=== PATIENT | male | born 1985 | race Caucasian/White ===

== ENCOUNTER 2023-07-06 13:39 | Emergency (ER) | payer OTHER ==
[2023-07-06 14:03] VITALS: BMI 26.6
[2023-07-06] MEDS ORDERED: KETOROLAC TROMETHAMINE 30 MG/1 ML VIAL IM ONE (14:33)
[2023-07-06] MEDS ORDERED: SODIUM CHLORIDE 0.9% 500 ML INFUS.BAG IV ONE (14:35)
[2023-07-06] MEDS ORDERED: KETOROLAC TROMETHAMINE 15 MG/ML VIAL IVPUSH ONE (14:35)
[2023-07-06] MEDS ORDERED: KETOROLAC TROMETHAMINE 15 MG/ML VIAL ONE (15:09)
[2023-07-06 15:24] LABS: BASO % 0.7 % (0-2.0); EOS % 0.8 % (0-4.5); HEMATOCRIT 42.7 % (35.4-49); HEMOGLOBIN 14.7 GM/dL (11.7-16.9); MCH 31.4 pg (25.7-33.7); MCHC 34.3 g/dl (32.0-35.9); MEAN CELL VOLUME 91.4 fl (80-96); MEAN PLT VOLUME 9.5 fl (7.5-11.1); MONO % 6.7 % (3.8-10.2); NEUT % 53.8 % (42.8-82.8); PH,URINE 5.5 (5.0-8.0); PLATELET COUNT 224 10^3/uL (134-434); RBC 4.67 M/mm3 (4.00-5.60); RDW 13.4 % (11.9-15.9); URINE APPEARANCE CLEAR; URINE BILIRUBIN NEGATIVE (NEGATIVE); URINE COLOR YELLOW; URINE GLUCOSE (UA) NEGATIVE (NEGATIVE); URINE KETONE NEGATIVE (NEGATIVE); URINE LEUK ESTERASE NEGATIVE (NEGATIVE); URINE NITRITE NEGATIVE (NEGATIVE); URINE PROTEIN NEGATIVE (NEGATIVE); URINE UROBILINOGEN 0.2 mg/dL (0.2-1.0); WHITE BLOOD COUNT 4.4 K/mm3 (4.0-10.0)
[2023-07-06 15:43] LABS: POTASSIUM 3.8 mmol/L (3.5-5.1)
[2023-07-06 15:44] LABS: CALCIUM 9.1 mg/dL (8.5-10.1)
[2023-07-06 15:46] LABS: BLOOD UREA NITROGEN 14.2 mg/dL (7-18)
[2023-07-06 15:49] LABS: BILIRUBIN,TOTAL 0.4 mg/dL (0.2-1)
[2023-07-06 15:50] LABS: TOT PROT 7.4 g/dl (6.4-8.2)
[2023-07-06 18:05] VITALS: BP 113/68; PULSE 55; RESP 16; TEMP 98
== END 2023-07-06 18:13 | disposition home or self-care (01) ==
LOC: JER 13:39
PROC: 3E0333Z Introduction of Anti-inflammatory into Peripheral Vein, Percutaneous Approach (ICD-10-PCS; principal; 2023-07-06)
DX: M54.50 Low back pain, unspecified (principal); R35.0 Frequency of micturition; R30.0 Dysuria; R10.9 Unspecified abdominal pain; N20.0 Calculus of kidney
CPT/HCPCS: 36415; 74176-TC; 80053; 81003; 85025; 87086; 87491; 87591; 87661; 99284-25